=== PATIENT | female | born 1995 | race African-American/Black ===

== ENCOUNTER 2017-05-18 19:59 | Emergency (ER) | payer SELFPAY ==
[~2017-05-18] VITALS: Ht 157.5 cm; Wt 59.0 kg
[2017-05-18 20:05] VITALS: BP 109/68; PULSE 82; RESP 16; O2SAT 100
[2017-05-18] MEDS ORDERED: BIRTH CONTROL PO (20:18)
[2017-05-18] MEDS ORDERED: TETANUS/DIPHTHERIA TOXOID ADULT 0.5 ML VIAL IM ONE (20:30)
[2017-05-18] MEDS ORDERED: IBUPROFEN 600 MG TAB PO ONE (20:30)
[2017-05-18] MEDS: LIDOCAINE 1%/EPINEPHrine 1:100,000 SOLN 20 ML VIAL INFIL ONE ×2 (20:30→21:01)
[2017-05-18] MEDS: LIDOCAINE 1%/EPINEPHrine 1:100,000 SOLN 30 ML VIAL ONE ×2 (20:51→20:56)
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
[2017-05-18] MEDS ORDERED: CEPH-460 PO (21:21)
[2017-05-18] MEDS ORDERED: IBUP-232 PO (21:21)
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
[2017-05-18 22:01] VITALS: TEMP 98.3
== END 2017-05-18 22:10 | disposition home or self-care (01) ==
LOC: NEPD 19:59
DX: S00.12XA Contusion of left eyelid and periocular area, initial encounter (principal); S01.511A Laceration without foreign body of lip, initial encounter; S00.531A Contusion of lip, initial encounter; Y08.89XA Assault by other specified means, initial encounter; Z23 Encounter for immunization
CPT/HCPCS: 12011; 70450; 70486; 90471; 90714